=== PATIENT | male | born 1995 | race American Indian/Alaskan Native ===

== ENCOUNTER 2019-11-28 11:24 | Emergency (ER) | payer OTHER ==
[2019-11-28 11:31] VITALS: BP 138/81
--- NOTE | 2019-11-28 11:36 | Event Note ---
ED Screening Note Date of service: 11/28/19 Time: 11:34 ED Screening Note: 24 y o male presents with cp ,back pain body aches and headache initial cough This initial assessment/diagnostic orders/clinical plan/treatment(s) is/are subject to change based on patients health status, clinical progression and re- assessment by fellow clinical providers in the ED. Further treatment and workup at subsequent clinical providers discretion. Patient/guardian urged not to elope from the ED as their condition may be serious if not clinically assessed and managed. Initial orders include: cxr acc eval
--- NOTE | 2019-11-28 12:00 | XRay Report ---
CHEST 2 VIEWS INDICATION / CLINICAL INFORMATION: Chest pain. Productive cough for 3 days. COMPARISON: None available. FINDINGS: SUPPORT DEVICES: None. HEART / MEDIASTINUM: No significant abnormality. LUNGS / PLEURA: No significant pulmonary or pleural abnormality. No pneumothorax. ADDITIONAL FINDINGS: No significant additional findings. IMPRESSION: 1. No acute abnormality of the chest. Signer Name: Mateo Daigle MD Signed: 11/28/2019 11:56 AM Workstation Name: [id number]
--- NOTE | 2019-11-28 13:34 | Emergency Department Report ---
Chief Complaint: Upper Respiratory Infection Stated Complaint: CHEST PAIN,HEADACHE, COUGH WITH BLOOD Time Seen by Provider: 11/28/19 12:42 - HPI History of Present Illness: 24-year-old -[place] male presents to the emergency room with complaint of cough and congestion that started 3 days ago. Patient reports that he seen blood this morning with his cough. Patient also complains of headache and body aches. Patient states that he took NyQuil and TheraFlu. Patient reports no primary care provider. Patient reports that he felt he may have had a fever 2 days ago. - Exam Vital Signs: Vital Signs 11/28/19 11:29 Temperature 99.0 F Pulse Rate 107 H Respiratory 22 Rate Blood Pressure 138/81 O2 Sat by Pulse 96 Oximetry MSE screening note: Focused history and physical exam performed. Due to findings the following was ordered: 24-year-old -[place] male presents to the emergency room with complaint of cough and congestion that started 3 days ago. Patient reports that he seen blood this morning with his cough. Patient also complains of headache and body aches. Patient states that he took NyQuil and TheraFlu. Patient reports no primary care provider. Patient reports that he felt he may have had a fever 2 days ago. Chest x-ray is negative for any acute findings. Recommend patient take [id number] Claritin, Robitussin ibuprofen or Tylenol for pain and body aches. Follow-up with your primary care provider if your symptoms persist or gets worse ED Disposition for [facility] [place] Disposition: MED SCREENING EXAM-LEFT Is pt being admited?: No Does the pt Need Aspirin: No Condition: Stable Additional Instructions: Chest x-ray is negative for any acute findings. Recommend patient take [id number] Claritin, Robitussin ibuprofen or Tylenol for pain and body aches. Follow-up with your primary care provider if your symptoms persist or gets worse Referrals: ISATU POWELL MD [Primary Care Provider] - 3-5 Days
== END 2019-11-28 13:24 | disposition left against medical advice (07) ==
LOC: ED 11:24
DX: R05 Cough (principal); R09.81 Nasal congestion; R51 Headache
CPT/HCPCS: 71046